=== PATIENT | male | born 1950 | race Two or more races ===

== ENCOUNTER 2016-09-26 12:20 | Emergency (ER) | payer OTHER ==
[~2016-09-26] VITALS: Ht 175.3 cm; Wt 81.6 kg
[2016-09-26 12:20] VITALS: BP 0/0
== END 2016-09-26 12:28 | disposition expired ==
LOC: ED 12:20 → EDBD 12:20 → ED 12:28
DX: I46.9 Cardiac arrest, cause unspecified (principal); E78.00 Pure hypercholesterolemia, unspecified